=== PATIENT | female | born 2000 | race African-American/Black ===

== ENCOUNTER 2019-06-13 19:51 | Emergency (ER) | payer SELFPAY ==
[~2019-06-13] VITALS: Ht 162.6 cm; Wt 72.6 kg
[2019-06-13] MEDS ORDERED: KETOROLAC TROMETHAMINE 30 MG/ML VIAL IV ONE (20:12)
[2019-06-13] MEDS ORDERED: ONDANSETRON HCL 4 MG ORAL DISINTEGRATING TAB PO ONE (20:15)
[2019-06-13] MEDS ORDERED: KETOROLAC TROMETHAMINE 30 MG/ML VIAL ONE (20:22)
[2019-06-13] MEDS ORDERED: ONDANSETRON HCL 4 MG ORAL DISINTEGRATING TAB ONE (20:22)
== END 2019-06-13 20:50 | disposition home or self-care (01) ==
LOC: FSED 19:51
DX: G44.219 Episodic tension-type headache, not intractable (principal)
CPT/HCPCS: 99283; J1885; Q0162